=== PATIENT | male | born 1965 | race Asian ===

== ENCOUNTER 2016-10-04 08:12 | Outpatient (CLI) | payer BC ==
[~2016-10-04 08:12] MED LIST: AMOX500C85 PO; BENICAR40 MG PO; CIPRSUS OT
[2016-10-04 08:42] LABS: PLATELET COUNT 156 K/uL (142-355)
[2016-10-04 08:59] LABS: POTASSIUM 3.9 mmol/L (3.6-5.2)
== END 2016-10-04 09:15 | disposition home or self-care (01) ==
LOC: LABW 08:12
PROVIDERS: Internal Medicine
DX: I10 Essential (primary) hypertension (principal); Z12.5 Encounter for screening for malignant neoplasm of prostate
CPT/HCPCS: 36415; 80053; 80061; 81000; 84153; 84443; 85027

== ENCOUNTER 2017-06-18 16:53 | Outpatient (CLI) | payer OTHER | END 2017-06-18 16:56 | disposition short-term general hospital (02) | LOC: AMB 16:53 | DX: M54.5 Low back pain (principal); M54.2 Cervicalgia; V49.88XA Car occupant (driver) (passenger) injured in other specified transport accidents, initial encounter; Y92.488 Other paved roadways as the place of occurrence of the external cause | CPT/HCPCS: A0425; A0427 ==

== ENCOUNTER 2017-06-18 16:59 | Emergency (ER) | payer OTHER ==
[~2017-06-18] VITALS: Ht 177.8 cm; Wt 107.5 kg
[2017-06-18 18:43] VITALS: BP 186/82; TEMP 98.1
== END 2017-06-18 18:43 | disposition home or self-care (01) ==
LOC: ED 16:59
DX: S39.012A Strain of muscle, fascia and tendon of lower back, initial encounter (principal); V43.52XA Car driver injured in collision with other type car in traffic accident, initial encounter
CPT/HCPCS: 99282

== ENCOUNTER 2017-06-23 16:58 | Outpatient (CLI) | payer OTHER | END 2017-06-23 19:00 | disposition home or self-care (01) | LOC: CT 16:58 | DX: M54.2 Cervicalgia (principal); G44.319 Acute post-traumatic headache, not intractable ==

== ENCOUNTER 2018-09-18 11:18 | Emergency (ER) | payer OTHER ==
[~2018-09-18] VITALS: Ht 177.8 cm; Wt 106.6 kg
[2018-09-18 13:20] LABS: PLATELET COUNT 220 K/uL (142-355)
[2018-09-18 13:30] LABS: POTASSIUM 3.8 mmol/L (3.6-5.2)
[2018-09-18 15:54] LABS: PARTIAL THROMBOPLASTIN TIME 26.9 SECONDS (24.5-33.6)
[2018-09-18 17:50] VITALS: BP 143/88; TEMP 98
== END 2018-09-18 17:50 | disposition short-term general hospital (02) ==
LOC: ED 11:18
PROVIDERS: Family Medicine
DX: K85.10 Biliary acute pancreatitis without necrosis or infection (principal)
CPT/HCPCS: 36415; 80053; 81000; 82150; 83615; 83690; 84478; 85027; 85610; 85730; 87040; 87340; 93005; 96360; 96365; 96375; 99284; J2543; J3490; Q9963

== ENCOUNTER 2018-09-18 17:53 | Outpatient (CLI) | payer OTHER | END 2018-09-18 19:25 | disposition short-term general hospital (02) | LOC: AMB 17:53 | DX: K85.10 Biliary acute pancreatitis without necrosis or infection (principal) | CPT/HCPCS: A0425; A0429 ==

== ENCOUNTER 2020-01-14 04:42 | Outpatient (CLI) | payer OTHER ==
[2020-01-14 05:32] LABS: PLATELET COUNT 182 K/uL (142-355)
== END 2020-01-15 00:17 | disposition home or self-care (01) ==
LOC: LAB 04:42
PROVIDERS: Internal Medicine
DX: I10 Essential (primary) hypertension (principal)
CPT/HCPCS: 36415; 80053; 80061; 81000; 84439; 84443; 85027

== ENCOUNTER 2022-09-07 11:45 | Day surgery (SDC) | payer OTHER | END 2022-09-07 15:45 | disposition home or self-care (01) | LOC: OR 11:45 | PROVIDERS: ATTEND Internal Medicine Gastroenterology | PROC: 0DBL8ZX Excision of Transverse Colon, Via Natural or Artificial Opening Endoscopic, Diagnostic (ICD-10-PCS; principal; 2022-09-07) | DX: Z12.11 Encounter for screening for malignant neoplasm of colon (principal); Z80.0 Family history of malignant neoplasm of digestive organs; D12.3 Benign neoplasm of transverse colon; K64.8 Other hemorrhoids; K62.1 Rectal polyp | CPT/HCPCS: J2704; J7120 ==

== ENCOUNTER 2022-10-03 12:31 | Outpatient (CLI) | payer OTHER ==
[2022-10-03 13:42] LABS: PLATELET COUNT 197 K/uL (142-355)
[2022-10-03 13:51] LABS: POTASSIUM 3.7 mmol/L (3.6-5.2)
== END 2022-10-03 19:22 | disposition home or self-care (01) ==
LOC: LAB 12:31
PROVIDERS: ATTEND Nurse Practitioner Family
DX: I10 Essential (primary) hypertension (principal); M19.90 Unspecified osteoarthritis, unspecified site; M48.9 Spondylopathy, unspecified; M47.816 Spondylosis without myelopathy or radiculopathy, lumbar region; E78.49 Other hyperlipidemia; E66.9 Obesity, unspecified; Z79.899 Other long term (current) drug therapy; R68.89 Other general symptoms and signs; R53.83 Other fatigue; R53.81 Other malaise
CPT/HCPCS: 80053; 80061; 83036; 84439; 84443; 85027